=== PATIENT | male | born 1980 | race African-American/Black ===

== ENCOUNTER 2016-08-05 09:59 | Emergency (ER) | payer SELFPAY ==
[~2016-08-05] VITALS: Ht 177.8 cm; Wt 70.0 kg
[~2016-08-05 09:59] MED LIST: BACT2OIN TOP; BACT800T5 PO; Z.0.NO CURRENT MEDS
[2016-08-05 10:00] VITALS: BP 135/95; PULSE 82; RESP 15; TEMP 98.2; O2SAT 98
[2016-08-05] MEDS ORDERED: PERM5CRE11 TOPICAL (10:18)
--- NOTE | 2016-08-05 10:19 | PD ---
HPI Chief Complaint: Skin Problem Time Seen by Provider: 10:18 Travel History International Travel<30 days: No Contact w/Intl Traveler<30days: No Traveled to known affect area: No History of Present Illness HPI 36-year-old male presents emergency Department with come complaint of a rash all over 2 weeks with worsening. Denies fever, vomiting. Denies new exposure to lotions, soaps, detergents, perfumes, temperamental exposures, medications, foods. Reports rash is itchy. Denies airway edema or difficulty breathing. No one else with similar symptoms. Has tried topical anti-itch creams with no relief of symptoms. No known relieving factors. No known allergies. Has no other medical complaints. No other modifying factors or associated signs and symptoms. PFSH Past Medical History Diminished Hearing: No Social History Alcohol Use: No Tobacco Use: Yes (1 PPD) Allergies-Medications (Allergen,Severity, Reaction): Coded Allergies: No Known Allergies (Verified , 04/24/15) Reported Meds & Prescriptions Reported Meds & Active Scripts Active Elimite Topical (Permethrin) 5% Cream 1 Applic TOPICAL ONCE Bactroban 2% Oint (22 gm) (Mupirocin) 22 Gm Oint 2 % TOP BID 10 Days APPLY TO AFFECTED AREAS Bactrim DS (Sulfamethoxazole-Trimethoprim DS) 1 Tab Tab 1 Tab PO BID Reported No Current Meds (Miscellaneous Medication) Misc Review of Systems Except as stated in HPI: all other systems reviewed are Neg Physical Exam Narrative GENERAL: Well-nourished, well-developed male patient, in no acute distress; afebrile, nontoxic-appearing SKIN: Warm and dry. Generalized erythremic pimple-like rash to right flank, abdominal waistline area, bilateral upper and lower extremities, bilateral hands ; some areas appear excoriated. No areas with cellulitic process noted. HEAD: Atraumatic. Normocephalic. EYES: Pupils equal and round. No scleral icterus. No injection or drainage. ENT: Mucosa pink and moist. Airway patent. NECK: Trachea midline. CARDIOVASCULAR: Regular rate. RESPIRATORY: No accessory muscle use. GASTROINTESTINAL: Flat. MUSCULOSKELETAL: No obvious deformities. No clubbing. No cyanosis. No edema. NEUROLOGICAL: Awake and alert. Oriented 3. No obvious cranial nerve deficits. Motor grossly within normal limits. Normal speech. PSYCHIATRIC: Appropriate mood and affect; insight and judgment normal. Data Data Last Documented VS Vital Signs Date Time Temp Pulse Resp B/P Pulse Ox O2 Delivery O2 Flow Rate FiO2 08/05/16 10:00 98.2 82 15 135/95 98 MDM Medical Decision Making Medical Screen Exam Complete: Yes Emergency Medical Condition: Yes Medical Record Reviewed: Yes Differential Diagnosis Dermatitis, scabies, bedbugs, hives Narrative Course 36-year-old male physical exam consistent with possible scabies rash. Patient is afebrile and nontoxic-appearing. He denies fever, vomiting. Denies new or recent exposures. Elimite cream prescribed for home. Instructed patient to follow up with sweatband perforator. Patient verbalizes understanding and agreement with treatment plan. Patient is medically cleared and stable for discharge. Discussed reasons to return to the emergency department. Instructed patient to follow up with primary care provider. Patient agrees with treatment plan. The patients vital signs are stable and the patient is stable for outpatient follow- up and treatment. Patient discharged home, stable and in no acute distress. Diagnosis Primary Impression: Scabies Referrals: [facility] Primary Care Physician Patient Instructions: General Instructions, Scabies (ED) Departure Forms: Tests/Procedures, Work Release Enter return to work date: Aug 06, 2016 Additional Instructions: Elimite cream as directed; repeat in one week as needed Soaking in cool water or apply cool, wet washcloths to irritated areas to minimize itching Apply anti-itch creams, such as calamine lotion, to relieve pain and itching as needed [id number] antihistamines as needed and as directed to relieve allergic symptoms caused by scabies Wash all pillows, linens, blankets, etc. in hot water and dry in hot dryer Bag and all unwashable linens, [place] stuffed animals, etc. in a tightly sealed garbage bag for up to 2 weeks Follow-up with sweatband perforator Follow-up with primary care provider Return to the emergency department immediately with worsening of symptoms Med/Other Pt SpecificInfo: Prescription(s) given Scripts Permethrin Topical (Elimite Topical)5% Cream1 Applic TOPICAL ONCE #1 TUBE Ref 1 Prov:Mary Javier 08/05/16 Disposition: 01 DISCHARGE HOME Condition: Stable Mary Javier Aug 05, 2016 10:19
== END 2016-08-05 10:39 | disposition home or self-care (01) ==
LOC: NEPK 09:59
DX: B86 Scabies (principal); F17.200 Nicotine dependence, unspecified, uncomplicated
CPT/HCPCS: 99283